=== PATIENT | female | born 1950 | race Caucasian/White ===

== ENCOUNTER 2018-06-01 10:23 | Emergency (ER) | payer MEDICARE, MEDICAID ==
[2018-06-01 11:08] VITALS: BP 131/61
--- NOTE | 2018-06-01 11:58 | RAD ---
INDICATION: Productive cough, history of breast and bladder cancer. COMPARISON: Comparison is made with a prior chest x-ray study from March 04, 2014. TECHNIQUE: Dual-energy PA and lateral views of the chest were obtained. FINDINGS: The heart is within normal limits in size. Mediastinal and hilar contours appear within normal limits. The lungs are clear. There is blunting of the right posterior costophrenic angle which is unchanged. No pleural effusion is seen. IMPRESSION: NO EVIDENCE FOR ACTIVE CARDIOPULMONARY DISEASE.
--- NOTE | 2018-06-01 12:09 | UC ---
Respiratory Complaint HPI - HPI Summary HPI Summary: The patient is a 68-year-old female with a productive cough 2 days, she denies any fever but has had chills. States that when she takes a deep breath and slightly hurts on the left side. It is been bringing up some thick yellowish sputum. He thinks she may have had pneumonia in the past. No nausea, diarrhea or vomiting. - History of Current Complaint Chief Complaint: UCRespiratory Stated Complaint: COUGH,CHEST CONGESTION Time Seen by Provider: 06/01/18 11:31 Hx Obtained From: Patient Onset/Duration: Gradual Onset, Lasting Days Severity Initially: Mild Severity Currently: Moderate Pain Intensity: 0 Pain Scale Used: 0-10 Numeric Character: Cough: Productive Aggravating Factors: Nothing Alleviating Factors: Nothing Associated Signs And Symptoms: Positive: Chills - Allergies/Home Medications Allergies/Adverse Reactions: Allergies Allergy/AdvReac Type Severity Reaction Status Date / Time No Known Allergies Allergy Verified 06/01/18 11:03 Home Medications: Home Medications Hydrochlorothiazide TAB* [Hydrodiuril TAB*] 12.5 mg PO DAILY 06/01/18 [History Confirmed 06/01/18] PMH/Surg Hx/FS Hx/Imm Hx Previously Healthy: Yes Cardiovascular History: Hypertension Respiratory History: Pneumonia Cancer History: Breast Cancer, Other Other Cancer History: bladder - Surgical History Surgical History: Yes Surgery Procedure, Year, and Place: cholecystectomy, T&A, appendectomy, Bladder tumor removed, Left Breast lumpectomy 2004 - Social History Alcohol Use: Rare Substance Use Type: None Smoking Status (MU): Heavy Every Day Tobacco Smoker Type: Cigarettes Amount Used/How Often: 1/2-1 PPD Review of Systems Constitutional: Chills, Fatigue Skin: Negative Eyes: Negative ENT: Negative Respiratory: Cough Cardiovascular: Negative Gastrointestinal: Negative Genitourinary: Negative Motor: Negative Neurovascular: Negative Musculoskeletal: Negative Neurological: Negative Psychological: Negative Is Patient Immunocompromised?: No All Other Systems Reviewed And Are Negative: Yes Physical Exam Triage Information Reviewed: Yes Appearance: Well-Appearing, No Pain Distress, Well-Nourished Vital Signs: Initial Vital Signs Temp 98.4 F 06/01/18 11:00 Pulse 56 06/01/18 11:00 Resp 18 06/01/18 11:00 BP 131/61 06/01/18 11:00 Pulse Ox 99 06/01/18 11:00 Vital Signs Reviewed: Yes Eyes: Positive: Conjunctiva Clear ENT: Positive: Hearing grossly normal, Pharynx normal, Uvula midline. Negative : Nasal congestion, Nasal drainage, Tonsillar swelling, Trismus, Muffled voice, Hoarse voice, Sinus tenderness Neck: Positive: Supple, Nontender, No Lymphadenopathy Respiratory: Positive: No respiratory distress, No accessory muscle use, Rhonchi Cardiovascular: Positive: RRR Musculoskeletal: Positive: ROM Intact, No Edema Neurological: Positive: Alert Psychological Exam: Normal Skin Exam: Normal UC Diagnostic Evaluation - Laboratory O2 Sat by Pulse Oximetry: 99 - normal/not hypoxic - Radiology Xray Interpretation: No Acute Changes Radiology Interpretation Completed By: Radiologist Respiratory Course/Dx - Differential Dx/Diagnosis Provider Diagnoses: acute bronchitis. tobacco use Discharge - Sign-Out/Discharge Documenting (check all that apply): Discharge/Admit/Transfer - Discharge Plan Condition: Stable Disposition: HOME Prescriptions: Amoxicillin PO (*) [Amoxicillin 875 MG (*)] 875 mg PO BID #14 tab Patient Education Materials: Acute Bronchitis (ED) Referrals: Nedra Elizalde MD [Primary Care Provider] - 4 Days (if not better) Additional Instructions: rest fluids tylenol or advil if needed robitussin or mucinex for cough - Billing Disposition and Condition Condition: STABLE Disposition: Home
== END 2018-06-01 12:09 | disposition home or self-care (01) ==
LOC: UCCORT 10:23
DX: J20.9 Acute bronchitis, unspecified (principal); I10 Essential (primary) hypertension; Z85.3 Personal history of malignant neoplasm of breast; F17.210 Nicotine dependence, cigarettes, uncomplicated
CPT/HCPCS: 71046; 99212; G0463

== ENCOUNTER 2019-02-23 10:21 | Emergency (ER) | payer MEDICARE, MEDICAID ==
--- OUTSIDE RECORDS SUMMARY | 2019-02-23 10:38 | XMS REPORT | Continuity of Care Document ---
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 Unavailable Nedra Elizalde MD Primary Care Physician Unavailable Payers Date Identification Numbers Payment Provider Subscriber Policy Number: [id number] Medicare Cherylin B Dimare PayID: [id number] [address] [place] [address] Expires: 2018 Policy Number: [id number] Medicare Chernatividadin B Dimare PayID: [id number] [address] [place] [address] Policy Number: [id number] Medicaid Chernatividadin B Dimare PayID: [id number] [address] [place] [address] Group Name: Workers Compensation Workers Compensation Loi [place] PayID: [id number] Advance Directives Description No Information Available Problems Date Description Provider Status Onset: 11/02/2015 Nuclear senile cataract Nedra Elizalde MD Active Onset: 11/02/2015 Hyperlipidemia Nedra Elizalde MD Active Onset: 11/02/2015 Hypothyroidism Nedra Elizalde MD Active Onset: 11/02/2015 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 Onset: 11/02/2015 Hypertensive heart disease without Nedra Elizalde MD Active heart failure Onset: 11/02/2015 Tobacco use Nedra Elizalde MD Active Onset: 11/02/2015 History of malignant neoplasm of Nedra Elizalde MD Active bladder Onset: 11/22/2015 Secondary polycythemia Natali Chapman DO Active Onset: 05/03/2016 Vitamin D deficiency Nedra Elizalde MD Active Onset: 05/03/2016 Age-related osteoporosis without Nedra Elizalde MD Active current pathological fracture Onset: 12/03/2016 Tobacco user Nedra Elizalde MD Active Onset: 11/02/2015 Mixed hyperlipidemia Active Onset: 11/02/2015 Benign essential hypertension Active Onset: 05/03/2016 Pure hypercholesterolemia Active Onset: 07/08/2017 Constipation Nedra Elizalde MD Active Onset: 06/02/2018 Vitamin B deficiency Natali Chapman DO Active Onset: 05/19/2018 Vitamin deficiency Natali Chapman DO Active Family History Date Family Member(s) Observation Comments Father due to Heart Disease () - 80 Mother Diabetes Mellitus Type 2 Mother due to Heart Disease () - 80 Mother Atrial Fibrillation Children 2 Siblings 6 First Brother ALS First Sister due to Aneurysm () Second Sister due to Aneurysm () Third Sister Chronic Obstructive Pulmonary Disease (COPD) Social History Type Date Description Comments Sex Unknown Education Highest level completed, 10th grade Marital Status Patient is Lives With Significant Other Diet Healthy, Well Balanced Pets 1 dog Occupation Retired FROM [employer] Tobacco Use Start: Unknown current cigarette smoker HX: 1 PPD X 40 YRS 1/4 PPD X 5 + YRS Smoking Status Reviewed: 07/08/17 current cigarette smoker HX: 1 PPD X 40 YRS 1/4 PPD X 5 + YRS ETOH Use Rarely consumes alcohol 6 DR/YR Tobacco Use Start: Unknown Patient is a current 1/4 PPD 1 1/2 PPD X 40 smoker, smokes every day YRS Allergies, Adverse Reactions, Alerts Description No Known Drug Allergies Medications Medication Date Status Form Strength Qnty SIG Indications Ordering Provider Ergocalciferol 06/02/20 Active Capsules [id number] 3caps 1 cap po Boufal, 18 q week Natali, DO Folic Acid 06/02/20 Active Tablets 1mg 30tab 1 tabl by Bofrank, 18 s mouth Natali, every day DO Levothyroxine 07/08/20 Active Tablets 125mcg 90tab Take 1 Ricardo Elizalde 17 s Tablet By MD Nedra Mouth Every Morning Calcium + D3 11/02/20 Active Tablets 600-200mg 1 by Tonio 16 -Unit mouth MD Nedra daily Hydrochlorothiaz 11/02/20 Active Capsules 12.5mg 90cap Take 1 I11.9 Tonio melissa 16 s Capsule MD Nedra By Mouth Every Morning Aspirin 05/02/20 Active Tablets 81mg 1 by Jazzmine Nicholson mouth Alexis Mckenzie, every day DO Atenolol 05/02/20 Active Tablets 100mg 90tab take 1 I11.9 Tonio 15 s tablet by MD Nedra mouth every day Alendronate 05/02/20 Active Tablets 70mg 12tab Take 1 Tonio Sodium 15 s Tablet By MD Nedra Mouth Once A Week Simvastatin 05/02/20 Active Tablets 20mg 90tab Take 1 Tonio 15 s Tablet By MD Nedra Mouth Every Day Every Night MDD 1 Calcium 1200 11/02/20 Hx Chewtabs 9655-9766 1 by Patrick Elizalde - mg-Unit mouth MD Nedra 11/02/20 every day 16 Bupropion HCL ER 11/02/20 Hx Tablets ER 150mg 30tab 1 by Z72.0 Tonio (XL) 16 - 24HR s mouth MD Nedra 07/08/20 every day 17 Vitamin D3 05/03/20 Hx Capsules 5000Unit 2 by Tonio 16 - jacob Sneed MD 11/02/20 every day 16 Levothyroxine 04/08/20 Hx Tablets 100mcg 90tab 1 By Ricardo Elizalde 16 - s Mouth MD Nedra 07/08/20 Every Day 17 MDD 1 Vitamin D3 11/02/20 Hx Capsules [id number] 36cap 1 by Tonio 15 - s mouth 2x/ MD Nedra 05/03/20 week 16 Vitamin D3 High 05/02/20 Hx Capsules 5000Ie 1 by Mark Nicholson 15 - mouth Alexis Mckenzie, 11/02/20 every day DO 15 Benefiber 05/02/20 Hx Powder as Bharat 15 - directed Alexis Mckenzie, 02/05/20 daily DO 19 Calcium 600 High 05/02/20 Hx Tablets 600mg 1 tab by Mark Nicholson 15 - mouth Alexis Mckenzie, 11/02/20 twice a DO 16 day Levothyroxine 05/02/20 Hx Tablets 88mcg 90tab Take 1 Ricardo Nicholson 15 - s Tablet Alexis Mckenzie, 11/07/20 Every Day DO 15 (Note, New Dose) Benefiber For 05/02/20 Hx Powder as Bharat, Children 15 - directed Alexis E, Unknown daily DO Calcium 600 05/02/20 Hx Tablets 1500mg 1 tab by Bharat 15 - mouth Alexis Parks, Unknown twice a DO day Mobic 04/25/20 Hx Tablets 15mg 30tab take one Tanvi, 11 - s tablet po MD Claudio 11/02/20 q day. 15 Ketorolac Hx Solution 0.5% Unknown Tromethamine - 05/03/20 16 Ofloxacin Hx Solution 0.3% Unknown (Ophthalmic) - 05/03/20 16 Prednisolone Hx Suspension 1% Unknown Acetate - 05/03/20 16 Canasa Hx Suppositor 1000mg Unwrap Unknown 00 - y And 05/03/20 Insert 1 16 Supposito ry Rectally AT Bedtime Vitamin D Hx Capsules [id number] Take 1 Unknown (Ergocalciferol) 00 - Capsule 07/14/20 By Mouth 18 Once Each Week Amoxicillin Hx Tablets 875mg 1tab by Alice 00 - mouth in Mansoor Olguin Unknown am 1 tab by mouth in pm for 1 week Medications Administered in Office Medication Date Status Form Strength Qnty SIG Indications Ordering Provider Vitamin B12 Administered Injection Boufal, Injection 1000 018 Natali, mcg/Ml DO Vitamin B12 Administered Injection Oncology Injection 1000 018 Nurse mcg/Ml Theraputic Or Administered Injection Oncology Diagnostic 018 Nurse Injection Immunizations CPT Code Status Date Vaccine Lot # [id number] Given 08/29/2017 Influenza High Dose 55130 Given 08/29/2017 Influenza High Dose 61017 Given 08/29/2017 Influenza High Dose Q2038 Given 09/01/2016 Influenza Vaccine (Fluzone) Age 3 And Older 74741 Given 09/08/2003 flu vaccination 64530 Given 04/06/1997 Tetnus Injection Vital Signs Date Vital Result Comment 02/04/2019 2:38pm BP Systolic 152 mmHg BP Diastolic 74 mmHg Body Temperature 98.2 F Heart Rate 68 /min Respiratory Rate 16 /min Weight 122.50 lb O2 % BldC Oximetry 98 % Pain Level 0 10/14/2018 3:27pm BP Systolic 171 mmHg BP Diastolic 83 mmHg Body Temperature 97.6 F Heart Rate 65 /min Respiratory Rate 16 /min Weight 125.00 lb O2 % BldC Oximetry 97 % Pain Level 0 07/14/2018 2:14pm BP Systolic 144 mmHg BP Diastolic 81 mmHg Body Temperature 98.8 F Heart Rate 59 /min Respiratory Rate 18 /min Weight 128.38 lb O2 % BldC Oximetry 98 % Pain Level 0 06/02/2018 12:44pm BP Systolic 138 mmHg BP Diastolic 76 mmHg Body Temperature 99.5 F Heart Rate 79 /min Weight 130.00 lb O2 % BldC Oximetry 96 % 05/19/2018 2:20pm BP Systolic 149 mmHg BP Diastolic 76 mmHg Body Temperature 97.9 F Heart Rate 57 /min Respiratory Rate 18 /min Weight 132.00 lb O2 % BldC Oximetry 97 % 11/05/2017 8:51am BP Systolic 170 mmHg BP Diastolic 83 mmHg Body Temperature 98.0 F Heart Rate 74 /min Weight 136.12 lb O2 % BldC Oximetry 94 % 07/08/2017 8:36am BP Systolic 142 mmHg BP Diastolic 90 mmHg Height 62 inches 5'2" Weight 139.00 lb BMI (Body Mass Index) 25.4 kg/m2 BSA (Body Surface Area) 1.64 m2 [place] body weight in kilograms 50 kg 05/07/2017 8:24am BP Systolic 150 mmHg BP Diastolic 85 mmHg Body Temperature 98.9 F Heart Rate 63 /min Weight 140.00 lb O2 % BldC Oximetry 95 % 01/30/2017 8:29am BP Systolic 130 mmHg BP Diastolic 78 mmHg BP Systolic Sitting Right Arm 115 mmHg BP Diastolic Sitting Right Arm 72 mmHg Body Temperature 99.1 F Heart Rate 58 /min Respiratory Rate 16 /min Height 62 inches 5'2" Weight 147.00 lb BMI (Body Mass Index) 26.9 kg/m2 BSA (Body Surface Area) 1.68 m2 O2 % BldC Oximetry 97 % 12/03/2016 10:31am BP Systolic Sitting Left Arm 158 mmHg BP Diastolic Sitting Left Arm 86 mmHg Body Temperature 98.2 F Heart Rate 84 /min Respiratory Rate 16 /min Height 62 inches 5'2" Weight 148.00 lb BMI (Body Mass Index) 27.1 kg/m2 BSA (Body Surface Area) 1.68 m2 [place] body weight in kilograms 50 kg 11/06/2016 8:38am BP Systolic 160 mmHg BP Diastolic 83 mmHg Body Temperature 97.7 F Heart Rate 64 /min Respiratory Rate 18 /min Weight 148.50 lb O2 % BldC Oximetry 95 % 11/02/2016 8:58am BP Systolic 179 mmHg BP Diastolic 100 mmHg BP Systolic Sitting Right Arm 156 mmHg BP Diastolic Sitting Right Arm 88 mmHg BP Systolic Sitting Left Arm 160 mmHg BP Diastolic Sitting Left Arm 88 mmHg Body Temperature 97.3 F Heart Rate 61 /min Respiratory Rate 20 /min Height 61 inches 5'1" Weight 147.00 lb BMI (Body Mass Index) 27.8 kg/m2 BSA (Body Surface Area) 1.66 m2 05/22/2016 1:37pm BP Systolic 135 mmHg BP Diastolic 80 mmHg Body Temperature 97.9 F Heart Rate 64 /min Respiratory Rate 14 /min Height 61 inches 5'1" Weight 147.00 lb BMI (Body Mass Index) 27.8 kg/m2 BSA (Body Surface Area) 1.66 m2 [place] body weight in kilograms 48 kg O2 % BldC Oximetry 96 % Pain Level 0 05/03/2016 2:30pm BP Systolic 144 mmHg BP Diastolic 80 mmHg BP Systolic Sitting Left Arm 134 mmHg BP Diastolic Sitting Left Arm 80 mmHg Body Temperature 97.9 F Heart Rate 58 /min Height 63 inches 5'3" Weight 148.00 lb BMI (Body Mass Index) 26.2 kg/m2 BSA (Body Surface Area) 1.70 m2 11/22/2015 12:56pm BP Systolic 169 mmHg BP Diastolic 95 mmHg Body Temperature 98.4 F Heart Rate 65 /min Respiratory Rate 16 /min Height 63 inches 5'3" Weight 145.00 lb BMI (Body Mass Index) 25.7 kg/m2 BSA (Body Surface Area) 1.69 m2 O2 % BldC Oximetry 96 % 11/02/2015 10:54am BP Systolic 150 mmHg BP Diastolic 86 mmHg BP Systolic Sitting Right Arm 135 mmHg BP Diastolic Sitting Right Arm 79 mmHg BP Systolic Sitting Left Arm 142 mmHg BP Diastolic Sitting Left Arm 85 mmHg Body Temperature 98.4 F Heart Rate 60 /min Respiratory Rate 19 /min Height 63.5 inches 5'3.50" Weight 144.38 lb BMI (Body Mass Index) 25.2 kg/m2 BSA (Body Surface Area) 1.69 m2 04/16/2011 9:38am Height 61.5 inches 5'1.50" Weight 143.00 lb no shoes 12/31/2007 2:30pm Height 62 inches 5'2" Weight 140.00 lb Results Test Date Facility Test Result H/L Range Note CBS 01/07/2019 [facility] White Blood 5.9 K/uL N 3.1-10.7 1 W/Automated [address] [place] [address] [phone] Red Blood Count 5.16 M/uL N 3.90-5.40 Hemoglobin 15.9 gm/dL High 11.6-15.8 Hematocrit 46.5 % High 36.0-46.1 Mean Cell Volume 90.1 fl N 80.9-99.0 Mean Corpuscular HGB 30.8 pg N 25.9-32.7 Mean Corpuscular HGB Conc 34.2 g/dL N 30.8-34.3 Platelet Count 181 K/uL N 155-360 Red Cell Distri Width SD 44.8 fl N 36-47 Red Cell Distri Width %CV 13.8 % N 11.7-14.4 Mean Platelet Volume 10.5 fL N 8.9-12.4 Neut% 48.3 % N 40.4-72.8 Lymph % 42.4 % High 20.0-42.0 [place] % 6.8 % N 4.3-13.2 Eo% 2.2 % N 0.0-6.6 Bas% 0.3 % N 0.0-1.1 Neut# 2.86 K/uL N 1.8-7.0 Lymph # 2.51 K/uL N 1.0-4.0 [place] # 0.40 K/uL N 0.3-0.9 Eos # 0.13 K/uL N 0.0-0.5 Baso # 0.02 K/uL N 0.0-0.1 Comprehensive Metabolic 01/07/2019 [facility] Glucose 90 mg/dL N 74-[address] [place], [place] [id number] [phone] BUN 21 mg/dL High 7-18 Creatinine 0.9 mg/dL N 0.6-1.3 Glom Filtration Rate, Estimate >60 mL/min >60 If >60 mL/min >60 2 BUN/Creat 23.3 ratio Sodium 143 mmol/L N 136-145 Potassium 3.2 mmol/L Low 3.5-5.1 Chloride 106 mmol/L N 98-107 Carbon Dioxide 31 mmol/L N 21-32 Anion Gap 6 mEq/L Low 8-16 Calcium 9.4 mg/dL N 8.5-10.1 Total Protein 7.4 g/dL N 6.4-8.2 Albumin 3.8 g/dL N 3.4-5.0 Globulin 3.6 g/dL N 1.9-4.3 Alb/Glob 1.1 ratio Bilirubin,Total 0.3 mg/dL N 0.2-1.0 Sgot/Ast 17 U/L N 15-37 SGPT/Alt 29 U/L N 12-78 Alkaline Phosphatase 81 U/L N 45-117 Iron-Tibc-%Sat 01/07/2019 [facility] Serum Iron 95 g/dL N 50-170 [address] [place] [address] [phone] Total Iron Binding Capacity 362 g/dL N 250-450 Transferrin %Saturation 26 % N 12-57 Laboratory test finding 01/07/2019 [facility] Ferritin 94 ng/mL N 8-252 [address] [place] [address] [phone] CA 27.29 25.5 U/mL 0.0-38.6 3 Vitamin B12 And 01/07/2019 [facility] Vitamin B12 498 pg/mL N 193-986 Folate [address] [place] [address] [phone] Folic Acid > 20.0 ng/mL High 3.1-17.5 Laboratory test 01/07/2019 [facility] Vitamin 38.9 30.0-100.0 4 finding [address] [facility] D,25-Hydroxy ng/[place] [address] [phone] CBS W/Automated 10/06/2018 [facility] White Blood 7.0 K/uL N 3.1-10.7 [address] [place] [address] [phone] Red Blood Count 5.17 M/uL N 3.90-5.40 Hemoglobin 15.5 gm/dL N 11.6-15.8 Hematocrit 47.4 % High 36.0-46.1 Mean Cell Volume 91.7 fl N 80.9-99.0 Mean Corpuscular HGB 30.0 pg N 25.9-32.7 Mean Corpuscular HGB Conc 32.7 g/dL N 30.8-34.3 Platelet Count 197 K/uL N 155-360 Red Cell Distri Width SD 47.5 fl High 3-47 Red Cell Distri Width %CV 14.5 % High 11.7-14.4 Mean Platelet Volume 10.4 fL N 8.9-12.4 Neut% 50.3 % N 40.4-72.8 Lymph % 40.1 % N 20.0-42.0 [place] % 7.4 % N 4.3-13.2 Eo% 1.8 % N 0.0-6.6 Bas% 0.4 % N 0.0-1.1 Neut# 3.53 K/uL N 1.8-7.0 Lymph # 2.82 K/uL N 1.0-4.0 [place] # 0.52 K/uL N 0.3-0.9 Eos # 0.13 K/uL N 0.0-0.5 Baso # 0.03 K/uL N 0.0-0.1 Comprehensive Metabolic 10/06/2018 [facility] Glucose 97 mg/dL N 74-106 Panel [address] [place] [address] [phone] BUN 19 mg/dL High 7-18 Creatinine 0.8 mg/dL N 0.6-1.3 Glom Filtration Rate, Estimate >60 mL/min >60 If >60 mL/min >60 6 BUN/Creat 23.7 ratio Sodium 142 mmol/L N 136-145 Potassium 3.9 mmol/L N 3.5-5.1 Chloride 104 mmol/L N 98-107 Carbon Dioxide 34 mmol/L High 21-32 Anion Gap 4 mEq/L Low 8-16 Calcium 9.1 mg/dL N 8.5-10.1 Total Protein 7.4 g/dL N 6.4-8.2 Albumin 3.7 g/dL N 3.4-5.0 Globulin 3.7 g/dL N 1.9-4.3 Alb/Glob 1.0 ratio Bilirubin,Total 0.3 mg/dL N 0.2-1.0 Sgot/Ast 19 U/L N 15-37 SGPT/Alt 27 U/L N 12-78 Alkaline Phosphatase 81 U/L N 45-117 Iron-Tibc-%Sat 10/06/2018 [facility] Serum Iron 96 g/dL N 50-170 [address] [place] [address] [phone] Total Iron Binding Capacity 340 g/dL N 250-450 Transferrin %Saturation 28 % N 12-57 Laboratory test finding 10/06/2018 [facility] Ferritin 92 ng/mL N 8-252 [address] [place] [address] [phone] CA 27.29 27.5 U/mL 0.0-38.6 7 Vitamin B12 And 10/06/2018 [facility] Vitamin B12 471 pg/mL N 193-986 Folate [address] [place] [address] [phone] Folic Acid > 20.0 ng/mL High 3.1-17.5 Laboratory 10/06/2018 [facility] Vitamin 27.5 Low 30.0-100.0 8 test finding [address] D,25-Hydroxy ng/[place] [address] [phone] Laboratory 06/30/2018 [facility] Vitamin 44.1 30.0-100.0 9, 10 test finding [address] D,25-Hydroxy ng/[place] [address] [phone] Vitamin B12 06/30/2018 [facility] Vitamin B12 577 N 193-[address] pg/[place] [address] [phone] Folic Acid > 20.0 ng/mL High 3.1-17.5 Laboratory test finding 06/30/2018 [facility] Ferritin 73 ng/mL N 8-252 [address] [place] [address] [phone] CA 27.29 26.2 U/mL 0.0-38.6 11 Iron-Tibc-%Sat 06/30/2018 [facility] Serum Iron 95 g/dL N 50-170 [address] [place] [address] [phone] Total Iron Binding Capacity 360 g/dL N 250-450 Transferrin %Saturation 26 % N 12-57 Comprehensive Metabolic 06/30/2018 [facility] Glucose 89 mg/dL N 74-[address] [place] [address] [phone] BUN 15 mg/dL N 7-18 Creatinine 0.8 mg/dL N 0.6-1.3 Glom Filtration Rate, Estimate >60 mL/min >60 If >60 mL/min >60 12 BUN/Creat 18.7 ratio Sodium 143 mmol/L N 136-145 Potassium 3.3 mmol/L Low 3.5-5.1 Chloride 105 mmol/L N 98-107 Carbon Dioxide 29 mmol/L N 21-32 Anion Gap 9 mEq/L N 8-16 Calcium 9.2 mg/dL N 8.5-10.1 Total Protein 7.4 g/dL N 6.4-8.2 Albumin 3.9 g/dL N 3.4-5.0 Globulin 3.5 g/dL N 1.9-4.3 Alb/Glob 1.1 ratio Bilirubin,Total 0.5 mg/dL N 0.2-1.0 Sgot/Ast 19 U/L N 15-37 SGPT/Alt 26 U/L N 12-78 Alkaline Phosphatase 75 U/L N 45-117 CBS W/Automated Diff 06/30/2018 [facility] White Blood 6.4 K/uL N 3.1-10.[address] [place] [address] [phone] Red Blood Count 5.15 M/uL N 3.90-5.40 Hemoglobin 15.7 gm/dL N 11.6-15.8 Hematocrit 46.1 % N 36.0-46.1 Mean Cell Volume 89.5 fl N 80.9-99.0 Mean Corpuscular HGB 30.5 pg N 25.9-32.7 Mean Corpuscular HGB Conc 34.1 g/dL N 30.8-34.3 Platelet Count 193 K/uL N 155-360 Red Cell Distri Width SD 45.2 fl N 3-47 Red Cell Distri Width %CV 14.1 % N 11.7-14.4 Mean Platelet Volume 10.6 fL N 8.9-12.4 Neut% 43.8 % N 40.4-72.8 Lymph % 43.8 % High 20.0-42.0 [place] % 9.2 % N 4.3-13.2 Eo% 3.0 % N 0.0-6.6 Bas% 0.2 % N 0.0-1.1 Neut# 2.81 K/uL N 1.8-7.0 Lymph # 2.80 K/uL N 1.0-4.0 [place] # 0.59 K/uL N 0.3-0.9 Eos # 0.19 K/uL N 0.0-0.5 Baso # 0.01 K/uL N 0.0-0.1 CBS W/Automated Diff 05/19/2018 [facility] White Blood 6.6 K/uL N 3.1-10.[address] [place] [address] [phone] Red Blood Count 5.11 M/uL N 3.90-5.40 Hemoglobin 15.7 gm/dL N 11.6-15.8 Hematocrit 46.4 % High 36.0-46.1 Mean Cell Volume 90.8 fl N 80.9-99.0 Mean Corpuscular HGB 30.7 pg N 25.9-32.7 Mean Corpuscular HGB Conc 33.8 g/dL N 30.8-34.3 Platelet Count 168 K/uL N 155-360 Red Cell Distri Width SD 47.0 fl N 3-47 Red Cell Distri Width %CV 14.4 % N 11.7-14.4 Mean Platelet Volume 10.7 fL N 8.9-12.4 Neut% 48.6 % N 40.4-72.8 Lymph % 40.3 % N 20.0-42.0 [place] % 8.2 % N 4.3-13.2 Eo% 2.7 % N 0.0-6.6 Bas% 0.2 % N 0.0-1.1 Neut# 3.19 K/uL N 1.8-7.0 Lymph # 2.65 K/uL N 1.0-4.0 [place] # 0.54 K/uL N 0.3-0.9 Eos # 0.18 K/uL N 0.0-0.5 Baso # 0.01 K/uL N 0.0-0.1 Comprehensive Metabolic 05/19/2018 [facility] Glucose 73 mg/dL Low 74-[address] [place], [place] [id number] [phone] BUN 17 mg/dL N 7-18 Creatinine 0.7 mg/dL N 0.6-1.3 Glom Filtration Rate, Estimate >60 mL/min >60 If >60 mL/min >60 13 BUN/Creat 24.2 ratio Sodium 142 mmol/L N 136-145 Potassium 3.4 mmol/L Low 3.5-5.1 Chloride 104 mmol/L N 98-107 Carbon Dioxide 29 mmol/L N 21-32 Anion Gap 9 mEq/L N 8-16 Calcium 9.2 mg/dL N 8.5-10.1 Total Protein 7.1 g/dL N 6.4-8.2 Albumin 3.8 g/dL N 3.4-5.0 Globulin 3.3 g/dL N 1.9-4.3 Alb/Glob 1.2 ratio Bilirubin,Total 0.3 mg/dL N 0.2-1.0 Sgot/Ast 24 U/L N 15-37 SGPT/Alt 30 U/L N 12-78 Alkaline Phosphatase 75 U/L N 45-117 Iron-Tibc-%Sat 05/19/2018 [facility] Serum Iron 66 g/dL N 50-170 [address] [place], [place] [id number] [phone] Total Iron Binding Capacity 365 g/dL N 250-450 Transferrin %Saturation 18 % N 12-57 Laboratory test finding 05/19/2018 [facility] Ferritin 83 ng/mL N 8-252 [address] [place], [place] [address] [phone] CA 27.29 22.8 U/mL 0.0-38.6 14 Vitamin B12 And 05/19/2018 [facility] Vitamin B12 373 pg/mL N 193-986 Folate [address] [place], [place] [address] [phone] Folic Acid 6.8 ng/mL N 3.1-17.5 Laboratory 05/19/2018 [facility] Vitamin 25.9 Low 30.0-100.0 15 test finding [address] D,25-Hydroxy ng/[place] [address] [phone] CBS 11/05/2017 [facility] White Blood 6.8 K/uL N 3.1-10.7 16 W/Automated [address] [facility] [place] [address] [phone] Red Blood Count 5.21 M/uL N 3.90-5.40 Hemoglobin 15.9 gm/dL High 11.6-15.8 Hematocrit 47.0 % High 36.0-46.1 Mean Cell Volume 90.2 fl N 80.9-99.0 Mean Corpuscular HGB 30.5 pg N 25.9-32.7 Mean Corpuscular HGB Conc 33.8 g/dL N 30.8-34.3 Platelet Count 198 K/uL N 155-360 Red Cell Distri Width SD 46.1 fl N 3-47 Red Cell Distri Width %CV 14.1 % N 11.7-14.4 Mean Platelet Volume 10.6 fL N 8.9-12.4 Neut% 57.9 % N 40.4-72.8 Lymph % 33.6 % N 20.0-42.0 [place] % 6.4 % N 4.3-13.2 Eo% 1.8 % N 0.0-6.6 Bas% 0.3 % N 0.0-1.1 Neut# 3.92 K/uL N 1.8-7.0 Lymph # 2.27 K/uL N 1.0-4.0 [place] # 0.43 K/uL N 0.3-0.9 Eos # 0.12 K/uL N 0.0-0.5 Baso # 0.02 K/uL N 0.0-0.1 Iron-Tibc-%Sat 11/05/2017 [facility] Serum Iron 108 g/dL N 50-170 [address] [place] [address] [phone] Total Iron Binding Capacity 349 g/dL N 250-450 Transferrin %Saturation 31 % N 12-57 Comprehensive Metabolic 11/05/2017 [facility] Glucose 99 mg/dL N 74-106 Panel [address] [place] [address] [phone] BUN 13 mg/dL N 7-18 Creatinine 0.7 mg/dL N 0.6-1.3 Glom Filtration Rate, Estimate >60 mL/min >60 If >60 mL/min >60 17 BUN/Creat 18.5 ratio Sodium 142 mmol/L N 136-145 Potassium 3.3 mmol/L Low 3.5-5.1 Chloride 104 mmol/L N 98-107 Carbon Dioxide 30 mmol/L N 21-32 Anion Gap 8 mEq/L N 8-16 Calcium 8.9 mg/dL N 8.5-10.1 Total Protein 7.0 g/dL N 6.4-8.2 Albumin 3.5 g/dL N 3.4-5.0 Globulin 3.5 g/dL N 1.9-4.3 Alb/Glob 1.0 ratio Bilirubin,Total 0.4 mg/dL N 0.2-1.0 Sgot/Ast 18 U/L N 15-37 SGPT/Alt 33 U/L N 12-78 Alkaline Phosphatase 75 U/L N 45-117 Laboratory test 11/05/2017 [facility] Ferritin 105 ng/mL N 8-[address] [place] [address] [phone] Vitamin B12 And 11/05/2017 [facility] Vitamin B12 527 pg/mL N 193-[address] [place] [address] [phone] Folic Acid 9.3 ng/mL N 3.1-17.5 Laboratory test 11/05/2017 [facility] Vitamin 28.3 Low 30.0-100.0 [address] D,25-Hydroxy ng/[place] [address] [phone] Laboratory test 07/08/2017 [facility] Thyroid Stim 4.84 High 0.30-4.20 [address] Hormone uIU/[place] [address] [phone] Comprehensive 05/07/2017 [facility] Glucose 101 N 74-106 20 Metabolic Panel [address] mg/[place] [address] [phone] BUN 12 mg/dL N 7-18 Creatinine 0.7 mg/dL N 0.6-1.3 Glom Filtration Rate, Estimate >60 mL/min >60 If >60 mL/min >60 21 BUN/Creat 17.1 ratio Sodium 143 mmol/L N 136-145 Potassium 3.5 mmol/L N 3.5-5.1 Chloride 107 mmol/L N 98-107 Carbon Dioxide 28 mmol/L N 21-32 Anion Gap 8 mEq/L N 8-16 Calcium 8.4 mg/dL Low 8.5-10.1 Total Protein 6.9 g/dL N 6.4-8.2 Albumin 3.6 g/dL N 3.4-5.0 Globulin 3.3 g/dL N 1.9-4.3 Alb/Glob 1.1 ratio Bilirubin,Total 0.4 mg/dL N 0.2-1.0 Sgot/Ast 19 U/L N 15-37 SGPT/Alt 33 U/L N 12-78 Alkaline Phosphatase 77 U/L N 45-117 CBS W/Automated Diff 05/07/2017 [facility] White Blood 6.8 K/uL N 3.1-10.[address] [place] [address] [phone] Red Blood Count 5.16 M/uL N 3.90-5.40 Hemoglobin 16.1 gm/dL High 11.6-15.8 Hematocrit 46.6 % High 36.0-46.1 Mean Cell Volume 90.3 fl N 80.9-99.0 Mean Corpuscular HGB 31.2 pg N 25.9-32.7 Mean Corpuscular HGB Conc 34.5 g/dL High 30.8-34.3 Platelet Count 188 K/uL N 150-400 Red Cell Distri Width SD 46.9 fl N 3-47 Red Cell Distri Width %CV 14.3 % N 11.7-14.4 Mean Platelet Volume 10.8 fL N 8.9-12.4 Neut% 55.1 % N 40.4-72.8 Lymph % 36.0 % N 20.0-42.0 [place] % 6.7 % N 4.3-13.2 Eo% 1.8 % N 0.0-6.6 Bas% 0.4 % N 0.0-1.1 Neut# 3.72 K/uL N 1.8-7.0 Lymph # 2.43 K/uL N 1.0-4.0 [place] # 0.45 K/uL N 0.3-0.9 Eos # 0.12 K/uL N 0.0-0.5 Baso # 0.03 K/uL N 0.0-0.1 Iron-Tibc-%Sat 05/07/2017 [facility] Serum Iron 118 g/dL N 50-170 [address] [place] [address] [phone] Total Iron Binding Capacity 329 g/dL N 250-450 Transferrin %Saturation 36 % N 12-57 Laboratory test 05/07/2017 [facility] Ferritin 94 ng/mL N 8-252 finding [address] [place] [address] [phone] Laboratory test 05/07/2017 [facility] Vitamin 28.9 ng/mL Low 30.0-100.0 22 finding [address] [facility] D,25-[place] [address] [phone] Vitamin B12 And 05/07/2017 [facility] Vitamin B12 378 pg/mL N 193-986 Folate [address] [place] [address] [phone] Folic Acid 7.9 ng/mL N 3.1-17.5 LDL Cholesterol 11/02/2016 [facility] Cholesterol 173 mg/dL N <200 23, 24 Profile [address] [place] [address] [phone] Triglycerides 123 mg/dL N <150 25 HDL Cholesterol 60 mg/dL N >40 26 LDL-Cholesterol 88 mg/dL N < 100 27 Laboratory test 11/02/2016 [facility] Thyroid Stim 4.10 uIU/mL N 0.30-4.20 finding [address] [facility] [place] [address] [phone] Laboratory test 10/24/2016 CRM Magnesium 2.0 mg/dL N 1.8-2.4 28 finding [address] [place] [address] [phone] LDH 200 U/L N 84-246 Sedimentation Rate 4 mm/hr N 0-30 Comprehensive Metabolic 10/24/2016 CRM Glucose 74 mg/dL N 74-106 Panel [address] [place] [address] [phone] BUN 14 mg/dL N 7-18 Creatinine 0.7 mg/dL N 0.6-1.3 Glom Filtration Rate, Estimate >60 mL/min N >60 If >60 mL/min N >60 29 BUN/Creat 20.0 ratio N Sodium 143 mmol/L N 136-145 Potassium 3.5 mmol/L N 3.5-5.1 Chloride 108 mmol/L High 98-107 Carbon Dioxide 32 mmol/L N 21-32 Anion Gap 3 mEq/L Low 8-16 Calcium 9.0 mg/dL N 8.5-10.1 Total Protein 7.0 g/dL N 6.4-8.2 Albumin 3.6 g/dL N 3.4-5.0 Globulin 3.4 g/dL N 1.9-4.3 Alb/Glob 1.1 ratio N Bilirubin,Total 0.4 mg/dL N 0.2-1.0 Sgot/Ast 19 U/L N 15-37 SGPT/Alt 29 U/L N 12-78 Alkaline Phosphatase 90 U/L N 45-117 CBS W/Automated Diff 10/24/2016 [facility] White Blood 6.1 K/uL N 3.1-10.[address] [place], [place] [id number] [phone] Red Blood Count 5.23 M/uL N 3.90-5.40 Hemoglobin 15.9 gm/dL High 11.6-15.8 Hematocrit 46.9 % High 36.0-46.1 Mean Cell Volume 89.7 fl N 80.9-99.0 Mean Corpuscular HGB 30.4 pg N 25.9-32.7 Mean Corpuscular HGB Conc 33.9 g/dL N 30.8-34.3 Platelet Count 191 K/uL N 155-360 Red Cell Distri Width SD 45.7 fl N 3-47 Red Cell Distri Width %CV 14.1 % N 11.7-14.4 Mean Platelet Volume 10.4 fL N 8.9-12.4 Neut% 47.2 % N 40.4-72.8 Lymph % 43.3 % N 17.0-46.1 [place] % 7.4 % N 4.3-13.2 Eo% 1.8 % N 0.0-6.6 Bas% 0.3 % N 0.0-1.1 Neut# 2.89 K/uL N 1.8-7.0 Lymph # 2.65 K/uL N 1.8-7.0 [place] # 0.45 K/uL N 0.3-0.9 Eos # 0.11 K/uL N 0.0-0.5 Baso # 0.02 K/uL N 0.0-0.1 Laboratory test 10/24/2016 [facility] CA 27.29 25.1 U/mL N 0.0-38.6 [address] [place] [address] [phone] CBC W/Automated 05/01/2016 [facility] White Blood 6.5 K/uL 3.1-10.[address] [place] [address] [phone] Red Blood Count 5.02 M/uL 3.90-5.40 Hemoglobin 15.3 gm/dL 11.6-15.8 Hematocrit 45.1 % 36.0-46.1 Mean Cell Volume 89.8 fl 80.9-99.0 Mean Corpuscular HGB 30.5 pg 25.9-32.7 Mean Corpuscular HGB Conc 33.9 g/dL 30.8-34.3 Platelet Count 184 K/uL 155-360 Red Cell Distri Width SD 46.0 fl 3-47 Red Cell Distri Width %CV 14.1 % 11.7-14.4 Mean Platelet Volume 10.8 fL 8.9-12.4 Neut% 53.6 % 40.4-72.8 Lymph % 36.3 % 17.0-46.1 [place] % 7.8 % 4.3-13.2 Eo% 2.0 % 0.0-6.6 Bas% 0.3 % 0.0-1.1 Neut# 3.48 K/uL 1.8-7.0 Lymph # 2.36 K/uL 1.8-7.0 [place] # 0.51 K/uL 0.3-0.9 Eos # 0.13 K/uL 0.0-0.5 Baso # 0.02 K/uL 0.0-0.1 Comprehensive Metabolic 05/01/2016 [facility] Glucose 102 mg/dL 74-[address] [place] [address] [phone] BUN 15 mg/dL 7-18 Creatinine 0.7 mg/dL 0.6-1.3 Glom Filtration Rate, Estimate >60 mL/min >60 If >60 mL/min >60 31 BUN/Creat 21.4 ratio Sodium 141 mmol/L 136-145 Potassium 3.8 mmol/L 3.5-5.1 Chloride 107 mmol/L 98-107 Carbon Dioxide 26 mmol/L 21-32 Anion Gap 8 mEq/L 8-16 Calcium 8.9 mg/dL 8.5-10.1 Total Protein 6.8 g/dL 6.4-8.2 Albumin 3.6 g/dL 3.4-5.0 Globulin 3.2 g/dL 1.9-4.3 Alb/Glob 1.1 ratio Bilirubin,Total 0.3 mg/dL 0.2-1.0 Sgot/Ast 18 U/L 15-37 SGPT/Alt 38 U/L 12-78 Alkaline Phosphatase 88 U/L 45-117 Laboratory test 05/01/2016 [facility] CA 27.29 23.8 U/mL 0.0-38.6 32 finding [address] [place] [address] [phone] Basic Metabolic 04/12/2016 [facility] Laboratory Sodium 139 mmol /L N 133-145 Panel [phone] Potassium 4.4 mmol/L N 3.5-5.0 Chloride 103 mmol/L N 101-111 Co2 Carbon Dioxide 31 mmol/L N 22-32 Anion Gap 5 mmol/L N 2-11 Glucose 93 mg/dL N 70-100 Blood Urea Nitrogen 18 mg/dL N 6-24 Creatinine 0.83 mg/dL N 0.51-0.95 BUN/Creatinine Ratio 21.7 High 8-20 Calcium 9.6 mg/dL N 8.6-10.3 Egfr Non- 68.6 N >60 Egfr 88.2 N >60 33 Comprehensive Metabolic 11/02/2015 [facility] Glucose 96 mg/dL 74-106 Panel [address] [place] [address] [phone] BUN 12 mg/dL 7-18 Creatinine 0.8 mg/dL 0.6-1.3 Glom Filtration Rate, Estimate >60 mL/min >60 If >60 mL/min >60 34 BUN/Creat 15.0 ratio Sodium 141 mmol/L 136-145 Potassium 4.3 mmol/L 3.5-5.1 Chloride 106 mmol/L 98-107 Carbon Dioxide 30 mmol/L 21-32 Anion Gap 5 mEq/L Low 8-16 Calcium 9.0 mg/dL 8.5-10.1 Total Protein 7.3 g/dL 6.4-8.2 Albumin 3.6 g/dL 3.4-5.0 Globulin 3.7 g/dL 1.9-4.3 Alb/Glob 1.0 ratio Bilirubin,Total 0.3 mg/dL 0.2-1.0 Sgot/Ast 19 U/L 15-37 SGPT/Alt 38 U/L 12-78 Alkaline Phosphatase 99 U/L 45-117 Laboratory test 11/02/2015 [facility] Thyroid Stim 4.32 uIU/mL High 0.36-3.[address] [place] [address] [phone] Vitamin D,25-Hydroxy 30.0 ng/mL 30.0-100.0 35 CBS W/Automated Diff 11/02/2015 [facility] White Blood 7.8 K/uL 3.1-10.[address] [place] [address] [phone] Red Blood Count 5.13 M/uL 3.90-5.40 Hemoglobin 16.0 gm/dL High 11.6-15.8 Hematocrit 47.0 % High 36.0-46.1 Mean Cell Volume 91.6 fl 80.9-99.0 Mean Corpuscular HGB 31.2 pg 25.9-32.7 Mean Corpuscular HGB Conc 34.0 g/dL 30.8-34.3 Platelet Count 222 K/uL 155-360 Red Cell Distri Width SD 46.6 fl 3-47 Red Cell Distri Width %CV 14.1 % 11.7-14.4 Mean Platelet Volume 10.7 fL 8.9-12.4 Neut% 50.2 % 40.4-72.8 Lymph % 40.0 % 17.0-46.1 [place] % 7.7 % 4.3-13.2 Eo% 1.7 % 0.0-6.6 Bas% 0.4 % 0.0-1.1 Neut# 3.89 K/uL 1.0-7.0 Lymph # 3.10 K/uL 1.8-7.0 [place] # 0.60 K/uL 0.3-0.9 Eos # 0.13 K/uL 0.0-0.5 Baso # 0.03 K/uL 0.0-0.1 1 Z85.3 E55.9 D75.1 2 Note: Persistent reduction for 3 months or more in an eGFR <60 mL/min/1.73 m2 defines CKD. Patients with eGFR values >/=60 mL/min/1.73 m2 may also have CKD if evidence of persistent proteinuria is present. The original MDRD equation for estimated GFR is not valid for patients less than 18 years of age. Additional information may be found at www.kdoqi.org. 3 Siemens FlowBelow Aero Immunochemiluminometric Methodology (ICMA) Values obtained with different assay methods or kits cannot be used interchangeably. Results cannot be interpreted as absolute evidence of the presence or absence of malignant disease. Performed at: RN - [facility] [address] [id number] Information Security Director: Beverley Izquierdo MD, Phone: [phone] 4 Vitamin D deficiency has been defined by the [place] and an Endocrine Society practice guideline as a level of serum 25-OH vitamin D less than 20 ng/mL (1,2). The Endocrine Society went on to further define vitamin D insufficiency as a level between 21 and 29 ng/mL (2). 1. IOM ([place] [employer]). 2010. Dietary reference intakes for calcium and D. [place]: The National Academies Press. 2. Maximino MF, Memo NC, Vibha PAYNE, et al. Evaluation, treatment, and prevention of vitamin D deficiency: an Endocrine Society clinical practice guideline. JCEM. 2010; 96(7):1911-30. Performed at: RN - [facility] [address] [id number] Information Security Director: Beverley Izquierdo MD, Phone: [phone] 5 Z85.3,E55.9,D75.1 6 Note: Persistent reduction for 3 months or more in an eGFR <60 mL/min/1.73 m2 defines CKD. Patients with eGFR values >/=60 mL/min/1.73 m2 may also have CKD if evidence of persistent proteinuria is present. The original MDRD equation for estimated GFR is not valid for patients less than 18 years of age. Additional information may be found at www.kdoqi.org. 7 Coral Centaur/ACS methodology Values obtained with different assay methods or kits cannot be used interchangeably. Results cannot be interpreted as absolute evidence of the presence or absence of malignant disease. Performed at: [address] [id number] Information Security Director: Beverley Izquierdo MD, Phone: [phone] 8 Vitamin D deficiency has been defined by the [place] and an Endocrine Society practice guideline as a level of serum 25-OH vitamin D less than 20 ng/mL (1,2). The Endocrine Society went on to further define vitamin D insufficiency as a level between 21 and 29 ng/mL (2). 1. IOM ([place]). 2010. Dietary reference intakes for calcium and D. [place]: The National Academies Press. 2. Memo Andrade, Vibha PAYNE, et al. Evaluation, treatment, and prevention of vitamin D deficiency: an Endocrine Society clinical practice guideline. JCEM. 2010; 96(7):1911-30. Performed at: [address] [id number] Information Security Director: Beverley Izquierdo MD, Phone: [phone] 9 Z85.3 E55.9 D75.1 10 Vitamin D deficiency has been defined by the [place] and an Endocrine Society practice guideline as a level of serum 25-OH vitamin D less than 20 ng/mL (1,2). The Endocrine Society went on to further define vitamin D insufficiency as a level between 21 and 29 ng/mL (2). 1. IOM ([place]). 2010. Dietary reference intakes for calcium and D. [place]: The National Academies Press. 2. Memo Andrade, Vibha PAYNE, et al. Evaluation, treatment, and prevention of vitamin D deficiency: an Endocrine Society clinical practice guideline. JCEM. 2010; 96(7):1911-30. Performed at: [address] [id number] Information Security Director: Beverley Izquierdo MD, Phone: [phone] 11 Coral Centaur/ACS methodology Values obtained with different assay methods or kits cannot be used interchangeably. Results cannot be interpreted as absolute evidence of the presence or absence of malignant disease. Performed at: [facility] [id number] Information Security Director: Beverley Izquierdo MD, Phone: [phone] 12 Note: Persistent reduction for 3 months or more in an eGFR <60 mL/min/1.73 m2 defines CKD. Patients with eGFR values >/=60 mL/min/1.73 m2 may also have CKD if evidence of persistent proteinuria is present. The original MDRD equation for estimated GFR is not valid for patients less than 18 years of age. Additional information may be found at www.kdoqi.org. 13 Note: Persistent reduction for 3 months or more in an eGFR <60 mL/min/1.73 m2 defines CKD. Patients with eGFR values >/=60 mL/min/1.73 m2 may also have CKD if evidence of persistent proteinuria is present. The original MDRD equation for estimated GFR is not valid for patients less than 18 years of age. Additional information may be found at www.kdoqi.org. 14 Coral Centaur/ACS methodology Values obtained with different assay methods or kits cannot be used interchangeably. Results cannot be interpreted as absolute evidence of the presence or absence of malignant disease. Performed at: [facility] [id number] Information Security Director: Beverley Izquierdo MD, Phone: [phone] 15 Vitamin D deficiency has been defined by the [place] and an Endocrine Society practice guideline as a level of serum 25-OH vitamin D less than 20 ng/mL (1,2). The Endocrine Society went on to further define vitamin D insufficiency as a level between 21 and 29 ng/mL (2). 1. IOM ([place]). 2010. Dietary reference intakes for calcium and D. [place]: The National Academies Press. 2. Maximino MF, Memo NC, Vibha PAYNE, et al. Evaluation, treatment, and prevention of vitamin D deficiency: an Endocrine Society clinical practice guideline. JCEM. 2010; 96(7):1911-30. Performed at: [facility] [id number] Information Security Director: Beverley Izquierdo MD, Phone: [phone] 16 T56.3 17 Note: Persistent reduction for 3 months or more in an eGFR <60 mL/min/1.73 m2 defines CKD. Patients with eGFR values >/=60 mL/min/1.73 m2 may also have CKD if evidence of persistent proteinuria is present. The original MDRD equation for estimated GFR is not valid for patients less than 18 years of age. Additional information may be found at www.kdoqi.org. 18 Vitamin D deficiency has been defined by the [place] and an Endocrine Society practice guideline as a level of serum 25-OH vitamin D less than 20 ng/mL (1,2). The Endocrine Society went on to further define vitamin D insufficiency as a level between 21 and 29 ng/mL (2). 1. IOM ([place]). 2010. Dietary reference intakes for calcium and D. [place]: The National Academ[employer] Press. 2. Maximino SALDIVAR, Memo MCCRARY, Vibha PAYNE, et al. Evaluation, treatment, and prevention of vitamin D deficiency: an Endocrine Society clinical practice guideline. JCEM. 2010; 96(7):1911-30. Performed at: RN - [facility] [address] [id number] Information Security Director: Beverley Izquierdo MD, Phone: [phone] 19 E03.9 20 Z85.3 21 Note: Persistent reduction for 3 months or more in an eGFR <60 mL/min/1.73 m2 defines CKD. Patients with eGFR values >/=60 mL/min/1.73 m2 may also have CKD if evidence of persistent proteinuria is present. The original MDRD equation for estimated GFR is not valid for patients less than 18 years of age. Additional information may be found at www.kdoqi.org. 22 Vitamin D deficiency has been defined by the [place] and an Endocrine Society practice guideline as a level of serum 25-OH vitamin D less than 20 ng/mL (1,2). The Endocrine Society went on to further define vitamin D insufficiency as a level between 21 and 29 ng/mL (2). 1. IOM ([place]). 2010. Dietary reference intakes for calcium and D. [place]: The National Academies Press. 2. Maximino SALDIVAR, Memo MCCRARY, Vibha PAYNE, et al. Evaluation, treatment, and prevention of vitamin D deficiency: an Endocrine Society clinical practice guideline. JCEM. 2010; 96(7):1911-30. Performed at: RN - [facility] [address] [id number] Information Security Director: Beverley Izquierdo MD, Phone: [phone] E78.5,I53.9 24 Reference Guidelines*: Desirable: ........... < 200 mg/dL Borderline High: ..... 200-239 mg/dL High: ................ >=240 mg/dL * The National Cholesterol Education Program (NCEP) 25 Reference Guidelines*: Normal: ............. < 150 mg/dL Borderline High: .... 150-199 mg/dL High: ............... 200-499 mg/dL Very High: .......... > 500 mg/dL * Source: National Cholesterol Education Program (NCEP) 26 Reference Guidelines*: Low HDL: ..... < 40 mg/dL Normal: ..... 40-60 mg/dL Desirable: ... > 60 mg/dL *The National Cholesterol Education Program(NCEP) 27 Reference Guidelines*: Optimal:........... <100 mg/dL Near Optimal....... 100-129 mg/dL Borderline High.... 130-159 mg/dL High............... 160-189 mg/dL Very High.......... >=190 mg/dL * Source: National Cholesterol Education Program (NCEP) 28 Z85.3 Z85.51 29 Note: Persistent reduction for 3 months or more in an eGFR <60 mL/min/1.73 m2 defines CKD. Patients with eGFR values >/=60 mL/min/1.73 m2 may also have CKD if evidence of persistent proteinuria is present. The original MDRD equation for estimated GFR is not valid for patients less than 18 years of age. Additional information may be found at www.kdoqi.org. 30 Coral Centaur/ACS methodology Values obtained with different assay methods or kits cannot be used interchangeably. Results cannot be interpreted as absolute evidence of the presence or absence of malignant disease. Performed at: [facility] [id number] Information Security Director: Beverley Izquierdo MD, Phone: [phone] 31 Note: Persistent reduction for 3 months or more in an eGFR <60 mL/min/1.73 m2 defines CKD. Patients with eGFR values >/=60 mL/min/1.73 m2 may also have CKD if evidence of persistent proteinuria is present. The original MDRD equation for estimated GFR is not valid for patients less than 18 years of age. Additional information may be found at www.kdoqi.org. 32 Coral Centaur/ACS methodology Values obtained with different assay methods or kits cannot be used interchangeably. Results cannot be interpreted as absolute evidence of the presence or absence of malignant disease. Performed at: [facility] [address] [id number] Information Security Director: Beverley Izquierdo MD, Phone: [phone] 33 Because ethnic data is not always readily available, this report includes an eGFR for both -Americans and non- Americans. The National Kidney Disease Education Program (NKDEP) does not endorse the use of the MDRD equation for patients that are not between the ages of 18 and 70, are , have extremes of body size, muscle mass, or nutritional status, or are non- or non-. According to the National Kidney Foundation, irrespective of diagnosis, the stage of the disease is based on the level of kidney function: Stage Description GFR(mL/min/1.73 m(2)) 1 Kidney damage with normal or decreased GFR 90 2 Kidney damage with mild decrease in GFR 60-89 3 Moderate decrease in GFR 30-59 4 Severe decrease in GFR 15-29 5 Kidney failure <15 (or dialysis) 34 Note: Persistent reduction for 3 months or more in an eGFR <60 mL/min/1.73 m2 defines CKD. Patients with eGFR values >/=60 mL/min/1.73 m2 may also have CKD if evidence of persistent proteinuria is present. The original MDRD equation for estimated GFR is not valid for patients less than 18 years of age. Additional information may be found at www.kdoqi.org. 35 Vitamin D deficiency has been defined by the [place] and an Endocrine Society practice guideline as a level of serum 25-OH vitamin D less than 20 ng/mL (1,2). The Endocrine Society went on to further define vitamin D insufficiency as a level between 21 and 29 ng/mL (2). 1. IOM ([place]). 2010. Dietary reference intakes for calcium and D. [place]: The National Academies Press. 2. Maximino MF, Memo NC, Vibha PAYNE, et al. Evaluation, treatment, and prevention of vitamin D deficiency: an Endocrine Society clinical practice guideline. JCEM. 2010; 96(8):1911-30. Performed at: RN - [facility] [address] [id number] Information Security Director: Beverley Izquierdo MD, Phone: [phone] Procedures Date Code Description Status 10/14/2018 94568 Theraputic Or Diagnostic Injection Completed 06/23/2018 [id number] Theraputic Or Diagnostic Injection Completed 05/23/2018 [id number] Mammogram Completed 05/21/2017 [id number] Mammogram Completed 05/15/2016 [id number] Mammogram Completed 11/25/2014 [id number] Mammogram Completed 11/25/2013 [id number] Colonoscopy Completed 11/25/2011 [id number] Bone Mineral Density Test Completed 04/16/201126152 Asp./Injection major joint Completed 12/31/200787952 Asp./Injection major joint Completed Encounters Type Date Location Provider Dx Diagnosis Office Visit 10/14/2018 Oncology Office Natali Chapman Z85.3 Personal history 3:30p DO of malignant neoplasm of breast Z85.51 Personal history of malignant neoplasm of bladder E53.9 Vitamin B deficiency, unspecified E55.9 Vitamin D deficiency, unspecified Office Visit 07/14/2018 2:30p Oncology Office Shy Chapman85.3 Personal history DO Natali of malignant neoplasm of breast Z85.51 Personal history of malignant neoplasm of bladder E53.9 Vitamin B deficiency, unspecified E55.9 Vitamin D deficiency, unspecified Office Visit 06/02/2018 1:00p Oncology Office Bou[place], Z85.3 Personal history Natali, DO of malignant neoplasm of breast Z85.51 Personal history of malignant neoplasm of bladder E55.9 Vitamin D deficiency, unspecified E53.9 Vitamin B deficiency, unspecified Office Visit 05/19/2018 1:30p Oncology Office Lou[place], E56.9 Vitamin Natali, DO deficiency, unspecified Z85.3 Personal history of malignant neoplasm of breast Z85.51 Personal history of malignant neoplasm of bladder Office Visit 11/05/2017 9:00a Oncology Office Louie[place], Z85.3 Personal history Natali, DO of malignant neoplasm of breast Z85.51 Personal history of malignant neoplasm of bladder E55.9 Vitamin D deficiency, unspecified Office Visit 07/08/2017 8:30a Family Nedra Pearce, I11.9 Hypertensive heart Rod PATEL MD disease without heart failure E03.9 Hypothyroidism, unspecified F17.210 Nicotine dependence, cigarettes, uncomplicated K59.00 Constipation, unspecified Z71.6 Tobacco abuse counseling Office Visit 05/07/2017 Oncology Ari, N60.32 Fibrosclerosis of 8:30a Office Natali, DO left breast Z85.3 Personal history of malignant neoplasm of breast Z85.51 Personal history of malignant neoplasm of bladder Office Visit 01/30/2017 8:30a Family Nedra Pearce, I11.9 Hypertensive heart Rod PATEL MD disease without heart failure F17.210 Nicotine dependence, cigarettes, uncomplicated Z85.3 Personal history of malignant neoplasm of breast Z85.51 Personal history of malignant neoplasm of bladder Office Visit 12/03/2016 10:30a Family Nedra Pearce, I11.9 Hypertensive heart Rod PATEL MD disease without heart failure F17.210 Nicotine dependence, cigarettes, uncomplicated Z85.3 Personal history of malignant neoplasm of breast Office Visit 11/06/2016 8:30a Oncology Office Ari, Z85.3 Personal history Natali, DO of malignant neoplasm of breast Z85.51 Personal history of malignant neoplasm of bladder Office Visit 11/02/2016 9:00a Nedra Mosher, I11.9 Hypertensive heart Rod PATEL MD disease without heart failure E78.5 Hyperlipidemia, unspecified E03.9 Hypothyroidism, unspecified Z72.0 Tobacco use Office Visit 05/22/2016 1:40p Oncology Office [place], Z85.3 Personal history DO Natali of malignant neoplasm of breast Z85.51 Personal history of malignant neoplasm of bladder Office Visit 05/03/2016 2:00p Family Medicine Nedra Elizalde, Z00.00 Encntr for Rod PATEL MD general adult medical exam w/o abnormal findings I11.9 Hypertensive heart disease without heart failure E78.5 Hyperlipidemia, unspecified E03.9 Hypothyroidism, unspecified Z85.3 Personal history of malignant neoplasm of breast Z85.51 Personal history of malignant neoplasm of bladder Z72.0 Tobacco use E55.9 Vitamin D deficiency, unspecified M81.0 Age-related osteoporosis w/o current pathological fracture Office Visit 11/22/2015 1:00p Oncology Office Ari Z85.3 Personal history DO Natali of malignant neoplasm of breast Z85.51 Personal history of malignant neoplasm of bladder D75.1 Secondary polycythemia Office Visit 11/02/2015 10:45a Family Elizalde Z01.818 Encounter for other Medicine Rod Sneed MD preprocedural RD examination H25.11 Age-related nuclear cataract, right eye I11.9 Hypertensive heart disease without heart failure E78.5 Hyperlipidemia, unspecified E03.9 Hypothyroidism, unspecified Z72.0 Tobacco use Z85.3 Personal history of malignant neoplasm of breast Z85.51 Personal history of malignant neoplasm of bladder E55.9 Vitamin D deficiency, unspecified Plan of Treatment 02/04/2019 - Natali Chapman, DOZ85.3 Personal history of malignant neoplasm of breastComments:Patient clinically stable without any signs or symptoms suggestive of recurrent disease. Mammogram will be scheduled for April and she will be seen xsupnA63.51 Personal history of malignant neoplasm of bladderComments:Patient clinically stable without any signs or symptoms suggestive of recurrent disease. She [place] appointment with Dr. [place] Vitamin B deficiency, unspecifiedComments:Levels within normal limits , continue oral [id number] Vitamin D deficiency, unspecifiedComments: Levels within normal limits, continue oral [id number] Abnormal weight lossComments:I spoke with patient about obtaining CT scan studies, she wants to wait
[2019-02-23 11:24] VITALS: BP 178/79
--- NOTE | 2019-02-23 11:49 | UC ---
Back Pain HPI - HPI Summary HPI Summary: 68-year-old woman comes in with a chief complaint of low back pain. Started yesterday. It's worse when she twists turns or bends. A 6 out of 10 at its worst. It takes my breath which did help with the pain. No weakness or numbness no difficulty controlling urine or bowel. No known trauma. - History of Current Complaint Chief Complaint: UCBackPain Stated Complaint: BACK PAIN Time Seen by Provider: 02/23/19 11:38 Pain Intensity: 4 - Allergies/Home Medications Allergies/Adverse Reactions: Allergies Allergy/AdvReac Type Severity Reaction Status Date / Time No Known Allergies Allergy Verified 02/23/19 11:17 Home Medications: Home Medications Ibuprofen TAB* [Advil TAB*] 200 mg PO ONCE PRN 02/23/19 [History Confirmed 02/23] PMH/Surg Hx/FS Hx/Imm Hx Previously Healthy: Yes Endocrine History: Hypothyroidism, Dyslipidemia Cardiovascular History: Hypertension - Surgical History Surgical History: Yes Surgery Procedure, Year, and Place: cholecystectomy, T&A, appendectomy, Bladder tumor removed, Left Breast lumpectomy 2004 - Family History Known Family History: Positive: Non-Contributory - Social History Alcohol Use: Rare Substance Use Type: None Smoking Status (MU): Heavy Every Day Tobacco Smoker Type: Cigarettes Amount Used/How Often: 1 PPD Review of Systems All Other Systems Reviewed And Are Negative: Yes Constitutional: Positive: Negative Skin: Positive: Negative Eyes: Positive: Negative ENT: Positive: Negative Respiratory: Positive: Negative Cardiovascular: Positive: Negative Gastrointestinal: Positive: Negative. Negative: Abdominal Pain Genitourinary: Positive: Hematuria - chronic Motor: Positive: Negative Neurovascular: Positive: Negative Musculoskeletal: Positive: Other: - see hpi Neurological: Positive: Negative Psychological: Positive: Negative Is Patient Immunocompromised?: No Physical Exam Triage Information Reviewed: Yes Appearance: Well-Appearing, Well-Nourished, Pain Distress - MILD WITH ROM Vital Signs: Initial Vital Signs Temp 97.7 F 02/23/19 11:19 Pulse 53 02/23/19 11:19 Resp 18 02/23/19 11:19 BP 178/79 02/23/19 11:19 Pulse Ox 100 02/23/19 11:19 Vital Signs Reviewed: Yes Eye Exam: Normal Eyes: Positive: Conjunctiva Clear Neck exam: Normal Neck: Positive: Supple Respiratory: Positive: Lungs clear, Normal breath sounds, No respiratory distress Musculoskeletal: Positive: Other: - Tender to palpation in the lower back. Patient has full strength and full range of motion in both legs and feet. No sensation deficit. Patient does complain of pain with hip flexion on either side. Neurological Exam: Normal Neurological: Positive: Alert, Muscle Tone Normal Psychological Exam: Normal Psychological: Positive: Age Appropriate Behavior Skin Exam: Normal Back Pain Course/Dx - Differential Dx/Diagnosis Provider Diagnosis: Low back pain Discharge - Sign-Out/Discharge Documenting (check all that apply): Patient Departure All imaging exams completed and their final reports reviewed: No Studies - Discharge Plan Condition: Stable Disposition: HOME Prescriptions: Cyclobenzaprine TAB* [Flexeril 10 MG TAB*] 10 mg PO TID PRN #15 tab MDD 3 PRN Reason: Pain Ibuprofen TAB* [Motrin TAB* 600 MG] 600 mg PO Q6H PRN #30 tab PRN Reason: Pain Patient Education Materials: Acute Low Back Pain (ED), Lower Back Exercises (ED ) Referrals: Nedra Elizalde MD [Primary Care Provider] - Additional Instructions: FOLLOW UP WITH YOUR DOCTOR IF NOT COMPLETELY IMPROVED. GET REEVALUATED SOONER IF YOUR CONDITION WORSENS; PAIN, WEAKNESS, NUMBNESS, DIFFICULTY CONTROLLING BOWEL OR BLADDER OR ANY QUESTIONS OR CONCERNS. - Billing Disposition and Condition Condition: STABLE Disposition: Home
== END 2019-02-23 11:57 | disposition home or self-care (01) ==
LOC: UCCORT 10:21
DX: M54.5 Low back pain (principal); F17.210 Nicotine dependence, cigarettes, uncomplicated; I10 Essential (primary) hypertension
CPT/HCPCS: 81003; 99212; G0463

== ENCOUNTER 2019-08-12 12:08 | Emergency (ER) | payer MEDICARE, MEDICAID ==
--- OUTSIDE RECORDS SUMMARY | 2019-08-12 12:15 | XMS REPORT | Continuity of Care Document ---
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 Hypertensive heart disease without heart Nedra Elizalde MD Onset: 11/02/2015 failure Tobacco use Nedra Elizalde MD Onset: 11/02/2015 History of malignant neoplasm of bladder Nedra Elizalde MD Onset: 11/02/2015 Secondary polycythemia Natali Chapman DO Onset: 11/22/2015 Vitamin D deficiency Nedra Elizalde MD Onset: 05/03/2016 Age-related osteoporosis without current Nedra Elizalde MD Onset: 05/03/2016 pathological fracture Tobacco user Nedra Elizalde MD Onset: 12/03/2016 Mixed hyperlipidemia Onset: 11/02/2015 Benign essential hypertension Onset: 11/02/2015 Pure hypercholesterolemia Onset: 05/03/2016 Constipation Nedra Elizalde MD Onset: 07/08/2017 Vitamin B deficiency Natali Chapman DO Onset: 06/02/2018 Vitamin deficiency Natali Chapman DO Onset: 05/19/2018 Social History Type Date Description Comments Sex Unknown Tobacco Use Start: Unknown current cigarette smoker HX: 1 PPD X 40 YRS /4 PPD X 5 + YRS Smoking Status Reviewed: 06/01/19 current cigarette smoker HX: 1 PPD X 40 YRS 1/4 PPD X 5 + YRS ETOH Use Rarely consumes alcohol 6 DR/YR Tobacco Use Start: Unknown Patient is a current / PPD 1 1/2 PPD X 40 smoker, smokes every day YRS Allergies, Adverse Reactions, Alerts Description No Known Drug Allergies Medications Active Medications SIG Qnty Indications Ordering Date Provider Ergocalciferol 1 cap po q 3caps Ari, 06/02/2018 [id number] Capsules week DO Natali Folic Acid 1 tabl by 30tabs Ari, 06/02/2018 1mg Tablets mouth every Natali, DO day Levothyroxine Sodium Take 1 Tablet 90tabs Nedra Elizalde, 07/08/2017 125mcg By Mouth Every MD Tablets Morning Calcium + D3 1 by mouth Nedra Elizalde, 11/02/2016 [id number] daily MD Tablets Hydrochlorothiazide Take 1 Capsule 90caps I11.9 Nedra Elizalde, 11/02/2016 12.5mg By Mouth Every MD Capsules Morning Aspirin 1 by mouth Alexis Nicholson 05/02/2015 81mg Tablets every day E., DO Atenolol Take 1 Tablet 90tabs I11.9 Nedra Elizalde, 05/02/2015 100mg Tablets By Mouth Every MD Day Alendronate Sodium Take 1 Tablet 12tabs Nedra Elizalde, 05/02/2015 70mg Tablets By Mouth Once MD A Week Simvastatin Take 1 Tablet 90tabs Nedra Elizalde, 05/02/2015 20mg Tablets By Mouth Every MD Day AT Night Medications Administered in Office Medication SIG Qnty Indications Ordering Provider Date Vitamin B12 Injection 1000 Natali Chapman DO 10/14/2018 mcg/Ml Injection Vitamin B12 Injection 1000 Oncology Nurse 06/23/2018 mcg/Ml Injection Theraputic Or Diagnostic Oncology Nurse 06/23/2018 Injection Injection Immunizations CPT Code Status Date Vaccine Lot # [id number] Given 07/15/2019 Pneumovax Injection 41469 Given 07/15/2019 Influenza High Dose 17139 Given 08/29/2017 Influenza High Dose 19131 Given 08/29/2017 Influenza High Dose 46792 Given 08/29/2017 Influenza High Dose Q2038 Given 09/01/2016 Influenza Vaccine (Fluzone) Age 3 And Older 61142 Given 09/08/2003 flu vaccination 66787 Given 04/06/1997 Tetnus Injection Vital Signs Date Vital Result Comment 06/01/2019 1:50pm BP Systolic 116 mmHg BP Diastolic 69 mmHg Body Temperature 99.1 F Heart Rate 67 /min Weight 122.38 lb O2 % BldC Oximetry 96 % Pain Level 0 02/04/2019 2:38pm BP Systolic 152 mmHg BP Diastolic 74 mmHg Body Temperature 98.2 F Heart Rate 68 /min Respiratory Rate 16 /min Weight 122.50 lb O2 % BldC Oximetry 98 % Pain Level 0 Results Test Date Facility Test Result H/L Range Note CBC 06/01/2019 [facility] White Blood 6.0 K/uL Normal 3.1-10.7 1 W/Automated [address] [place] [address] [phone] Red Blood Count 5.07 M/uL Normal 3.90-5.40 Hemoglobin 15.5 gm/dL Normal 11.6-15.8 Hematocrit 45.7 % Normal 36.0-46.1 Mean Cell Volume 90.1 fl Normal 80.9-99.0 Mean Corpuscular HGB 30.6 pg Normal 25.9-32.7 Mean Corpuscular HGB Conc 33.9 g/dL Normal 30.8-34.3 Platelet Count 200 K/uL Normal 155-360 Red Cell Distri Width SD 44.3 fl Normal 36-47 Red Cell Distri Width %CV 13.4 % Normal 11.7-14.4 Mean Platelet Volume 10.6 fl Normal 8.9-12.4 Neut% 45.4 % Normal 40.4-72.8 Lymph % 43.2 % High 20.0-42.0 Hoke % 8.3 % Normal 4.3-13.2 Eo% 2.3 % Normal 0.0-6.6 Bas% 0.5 % Normal 0.0-1.1 Immature Grans 0.3 % Normal 0.0-5.0 NRBC % 0.0 /100WBC < 10/ 100 WBC Neut# 2.72 K/uL Normal 1.8-7.0 Lymph # 2.59 K/uL Normal 1.0-4.0 Hoke # 0.50 K/uL Normal 0.3-0.9 Eos # 0.14 K/uL Normal 0.0-0.5 Baso # 0.03 K/uL Normal 0.0-0.1 Immature Grans Absolute 0.02 K/uL NRBC # 0.00 K/uL Comprehensive 06/01/2019 [facility] Glucose 92 mg/dL Normal 74-106 Metabolic Panel [address], [place] [id number] [phone] BUN 18 mg/dL Normal 7-18 Creatinine 0.7 mg/dL Normal 0.6-1.3 Glom Filtration Rate, Estimate >60 mL/min >60 If >60 mL/min >60 2 BUN/Creat 25.7 ratio Sodium 140 mmol/L Normal 136-145 Potassium 3.7 mmol/L Normal 3.5-5.1 Chloride 103 mmol/L Normal 98-107 Carbon Dioxide 32 mmol/L Normal 21-32 Anion Gap 5 mEq/L Low 8-16 Calcium 9.1 mg/dL Normal 8.5-10.1 Total Protein 7.2 g/dL Normal 6.4-8.2 Albumin 3.7 g/dL Normal 3.4-5.0 Globulin 3.5 g/dL Normal 1.9-4.3 Alb/Glob 1.1 ratio Bilirubin,Total 0.2 mg/dL Normal 0.2-1.0 Sgot/Ast 18 U/L Normal 15-37 SGPT/Alt 25 U/L Normal 12-78 Alkaline Phosphatase 89 U/L Normal 45-117 Iron-Tibc-%Sat 06/01/2019 [facility] Serum Iron 59 g/dL Normal 50-170 [address], [place] [id number] [phone] Total Iron Binding Capacity 332 g/dL Normal 250-450 Transferrin %Saturation 18 % Normal 12-57 Laboratory test 06/01/2019 [facility] Ferritin 87 ng/mL Normal 8-252 finding [address], [place] [id number] [phone] CA 27.29 29.7 U/mL 0.0-38.6 3 Vitamin B12 And 06/01/2019 [facility] Vitamin B12 380 pg/mL Normal 193-986 Folate [address] [place] [address] [phone] Folic Acid > 20.0 ng/mL High 3.1-17.5 Laboratory test 06/01/2019 [facility] Vitamin 39.3 ng/mL 30.0-100.0 4 finding [address] [address] [phone] Ua RFX Micro & 06/01/2019 [facility] Urine Color YELLOW Yellow Culture II [address] [place] [address] [phone] Urine Clarity CLEAR Clear Urine Glucose - Dipstick NEGATIVE mg/dL Negative Urine Bilirubin - Dipstick NEGATIVE Negative Urine Ketone NEGATIVE mg/dL Negative Urine Specific [place] >= 1.030 Normal 1.010-1.030 Urine Blood LARGE Abnormal Negative Urine PH 5.0 Low 6.5-7.5 Urine Protein - Dipstick NEGATIVE mg/dL Negative Urine Urobilinogen - Dipstick 0.2 E.U./dL Normal 0.2-1.0 Urine Nitrite - Dipstick NEGATIVE Negative Urine Leuk Esterase NEGATIVE Negative Urine RBC 2-5 rbc/hpf 0-2 Urine WBC NONE SEEN wbc/hpf 0-7 Urine Epithelial Cells VERY FEW /lpf None Seen Poc Urinalysis 02/23/2019 [facility] Laboratory Poc Glucose, Negative Negative [phone] Urine Poc Bilirubin, Urine Negative Negative Poc Ketone, Urine Negative Negative Poc Specific [place], Urine 1.010 Normal 1.010-1.030 Poc Blood, Urine 2+ Abnormal Negative Poc pH, Urine 5.0 Normal 5-9 Poc Protein, Urine Negative Negative Poc Urobilinogen, Urine 0.2 Negative Poc Nitrite, Urine Negative Negative Poc Leukocytes, Urine Negative Negative Poc Color, Urine Yellow Poc Clarity, Urine Clear 5 1 Z85.51 E53.9 E55.9 2 Note: Persistent reduction for 3 months or more in an eGFR <60 mL/min/1.73 m2 defines CKD. Patients with eGFR values >/=60 mL/min/1.73 m2 may also have CKD if evidence of persistent proteinuria is present. The original MDRD equation for estimated GFR is not valid for patients less than 18 years of age. Additional information may be found at www.kdoqi.org. 3 Siemens bounce.ioaur Immunochemiluminometric Methodology (ICMA) Values obtained with different assay methods or kits cannot be used interchangeably. Results cannot be interpreted as absolute evidence of the presence or absence of malignant disease. Performed at: - [facility] [id number] Loan Teller: Beverley Izquierdo MD, Phone: [phone] 4 Vitamin D deficiency has been defined by the [place] of [employer] and an Endocrine Society practice guideline as a level of serum 25-OH vitamin D less than 20 ng/mL (1,2). The Endocrine Society went on to further define vitamin D insufficiency as a level between 21 and 29 ng/mL (2). 1. IOM ([place] of [employer]). 2010. Dietary reference intakes for calcium and D. [place]: The National Academies Press. 2. Maximino MF, Memo NC, Vibha PAYNE, et al. Evaluation, treatment, and prevention of vitamin D deficiency: an Endocrine Society clinical practice guideline. JCEM. 2010; 96(7):1911-30. Performed at: RN - [facility] [address] [id number] Loan Teller: Beverley Izquierdo MD, Phone: [phone] Assistant Import Manager: [id number] Procedures Date Code Description Status 05/23/2018 [id number] Mammogram Completed 05/21/2017 [id number] Mammogram Completed 05/15/2016 [id number] Mammogram Completed 11/25/2014 [id number] Mammogram Completed 11/25/2013 [id number] Colonoscopy Completed 11/25/2011 [id number] Bone Mineral Density Test Completed Medical Devices Description No Information Available Encounters Type Date Location Provider Dx Diagnosis Office Visit 02/04/2019 Oncology Office AriChloet, Z85.3 Personal history 2:00p DO of malignant neoplasm of breast Z85.51 Personal history of malignant neoplasm of bladder E53.9 Vitamin B deficiency, unspecified E55.9 Vitamin D deficiency, unspecified R63.4 Abnormal weight loss Assessments Date Code Description Provider 06/01/2019 Z85.3 Personal history of malignant neoplasm of Boufal, Natali , DO breast 02/04/2019 Z85.3 Personal history of malignant neoplasm of Boufal, Natali , DO breast 02/04/2019 Z85.51 Personal history of malignant neoplasm of Boufal, Natali , DO bladder 02/04/2019 E53.9 Vitamin B deficiency, unspecified Boufal, Natali, DO 02/04/2019 E55.9 Vitamin D deficiency, unspecified Boufal, Natali, DO 02/04/2019 R63.4 Abnormal weight loss Natali Chapman DO Plan of Treatment Future Appointment(s):08/25/2019 2:00 pm - Oncology Nurse at Oncology [id number] 2:00 pm - Natali Chapman DO at Oncology Office Functional Status Functional Condition Comment Date Status Complete Dentures Active Glasses Active Mental Status Description No Information Available Referrals Description No Information Available
[2019-08-12 12:19] VITALS: BP 171/92
--- NOTE | 2019-08-12 12:25 | UC ---
Back Pain HPI - HPI Summary HPI Summary: 69-year-old female ends with complaints of lower back pain. States that 6 days ago she was assisting in elderly friend off of the toilet and felt a pull in her left lower back. States pain is very minimal she is resting however worsens with any bending, twisting, or lifting. Has been taking ibuprofen 600 mg with some relief in the pain. Denies fever, chills, abdominal pain, nausea, vomiting, dysuria, frequency, urgency, hematuria, numbness, tingling, or weakness of the lower extremities, or loss of bowel or bladder control. - History of Current Complaint Chief Complaint: UCBackPain Stated Complaint: LOW BACK PAIN Time Seen by Provider: 08/12/19 12:15 Hx Obtained From: Patient Pain Intensity: 3 - Allergies/Home Medications Allergies/Adverse Reactions: Allergies Allergy/AdvReac Type Severity Reaction Status Date / Time No Known Allergies Allergy Verified 08/12/19 12:14 Home Medications: Home Medications Aspirin EC TAB* [Ecotrin EC Low Dose 81 MG*] 1 tab DAILY 08/12/19 [History Confirmed 08/12/19] Atenolol TAB* [Tenormin TAB* 25 MG] 25 mg PO DAILY 08/12/19 [History Confirmed 08/12/19] PMH/Surg Hx/FS Hx/Imm Hx - Additional Past Medical History Additional PMH: osteoporosis Endocrine History: Hypothyroidism, Dyslipidemia Cardiovascular History: Hypertension - Surgical History Surgical History: Yes Surgery Procedure, Year, and Place: cholecystectomy, T&A, appendectomy, Bladder tumor removed, Left Breast lumpectomy 2004 - Family History Known Family History: Positive: Non-Contributory - Social History Occupation: Retired Lives: Alone Alcohol Use: None Substance Use Type: None Smoking Status (MU): Heavy Every Day Tobacco Smoker Type: Cigarettes Amount Used/How Often: 1 PPD Review of Systems All Other Systems Reviewed And Are Negative: Yes Constitutional: Negative: Fever, Chills Skin: Negative: Rash Respiratory: Positive: Negative Cardiovascular: Positive: Negative Gastrointestinal: Positive: Negative Genitourinary: Negative: Dysuria, Hematuria, Frequency, Urgency Motor: Negative: Weakness Neurovascular: Negative: Decreased Sensation Musculoskeletal: Positive: Other: - See HPI Neurological: Positive: Negative Is Patient Immunocompromised?: No Physical Exam - Summary Physical Exam Summary: GENERAL APPEARANCE: Well developed, well nourished, alert and cooperative, and appears to be in no acute distress. CARDIAC: Normal S1 and S2. No S3, S4 or murmurs. Rhythm is regular. There is no peripheral edema, cyanosis or pallor. Extremities are warm and well perfused. Capillary refill is less than 2 seconds. Peripheral pulses intact. LUNGS: Clear to auscultation without rales, rhonchi, wheezing or diminished breath sounds. ABDOMEN: Positive bowel sounds. Soft, nondistended, nontender. No guarding or rebound. No masses or hepatosplenomegally. MUSKULOSKELETAL: ROM intact to all extremities. No joint erythema or tenderness. Normal muscular development. BACK: Examination of the spine reveals no midline spinal deformity or tenderness , paraspinous soft tissue tenderness over the left lumbar back with spasm. NEUROLOGICAL: Strength and sensation symmetric and intact to lower extremities. Normal gait. SKIN: Skin normal color, texture and turgor with no lesions or eruptions. Triage Information Reviewed: Yes Vital Signs: Initial Vital Signs Temp 98.6 F 08/12/19 12:15 Pulse 79 08/12/19 12:15 Resp 18 08/12/19 12:15 BP 171/92 08/12/19 12:15 Pulse Ox 97 08/12/19 12:15 Vital Signs Reviewed: Yes Back Pain Course/Dx - Course Course Of Treatment: 69-year-old female ends with complaints of lower back pain. States that 6 days ago she was assisting in elderly friend off of the toilet and felt a pull in her left lower back. States pain is very minimal she is resting however worsens with any bending, twisting, or lifting. Has been taking ibuprofen 600 mg with some relief in the pain. Denies fever, chills, abdominal pain, nausea, vomiting, dysuria, frequency, urgency, hematuria, numbness, tingling, or weakness of the lower extremities, or loss of bowel or bladder control. Afebrile. Hypertensive otherwise vital signs stable. Patient had no midline spinal deformity or tenderness, paraspinous soft tissue tenderness over the left lumbar back with spasm, normal strength and sensation lower extremities, normal gait, and otherwise unremarkable exam. Recommending conservative treatment for an acute low back pain including ibuprofen 600 mg every 8 hours as needed for pain, cyclobenzaprine 10 mg 1 tablet every 8 hours as needed for severe pain or spasm, and heat therapy. She is to follow-up with her primary care provider in 3 days if symptoms are not improving. Anticipatory guidance and warning symptoms are reviewed with the patient. Verbalizes understanding and agrees with plan of care. - Differential Dx/Diagnosis Differential Diagnosis/HQI/PQRI: Fracture, Herniated Disc, Osteoporosis, Renal Colic, Strain Provider Diagnosis: Acute low back pain Discharge ED - Sign-Out/Discharge Documenting (check all that apply): Patient Departure All imaging exams completed and their final reports reviewed: No Studies - Discharge Plan Condition: Stable Disposition: HOME Prescriptions: Cyclobenzaprine HCl 10 mg PO Q8HR PRN #21 tablet PRN Reason: Spasms - Back Patient Education Materials: Acute Low Back Pain (ED), Lower Back Exercises (ED ) Referrals: Nedra Elizalde MD [Primary Care Provider] - 3 Days Additional Instructions: Apply heating pad to the affected area for 15-20 minutes at least 4 times a day to help with the pain and relax the muscles. Take ibuprofen (Advil, Motrin) 600 mg every 8 hours as needed for pain. Take cyclobenzaprine 10 mg 1 tab every 8 hours as needed for severe pain or spasm. This medication will cause drowsiness so do not take and drive or operate machinery. Follow up with your primary care provider in 3 days if symptoms do not improve. Seek immediate medical attention if you have severe pain not managed with pain medication, you are unable to walk or bear any weight, develop weakness, numbness or tingling in the lower extremities, lose control of your bowel or bladder, or have any worsening of symptoms. - Billing Disposition and Condition Condition: STABLE Disposition: Home
== END 2019-08-12 12:43 | disposition home or self-care (01) ==
LOC: UCCORT 12:08
DX: M54.5 Low back pain (principal); I10 Essential (primary) hypertension; F17.210 Nicotine dependence, cigarettes, uncomplicated
CPT/HCPCS: 99212; G0463